=== PATIENT | male | born 1975 | race Two or more races ===

== ENCOUNTER 2019-11-15 04:07 | Emergency (ER) | payer SELFPAY ==
[~2019-11-15] VITALS: Ht 167.6 cm; Wt 72.7 kg
[2019-11-15] MEDS ORDERED: HALOPERIDOL 5 MG TABLET PO ONE (05:30)
[2019-11-15] MEDS ORDERED: LORazepam 1 MG TABLET PO ONE (05:30)
[2019-11-15 05:37] VITALS: BP 119/76
== END 2019-11-15 05:57 | disposition home or self-care (01) ==
LOC: EMS 04:07
DX: R44.0 Auditory hallucinations (principal); F17.210 Nicotine dependence, cigarettes, uncomplicated; F12.90 Cannabis use, unspecified, uncomplicated; F15.90 Other stimulant use, unspecified, uncomplicated
CPT/HCPCS: Z7502; Z7610